=== PATIENT | female | born 2000 | race Caucasian/White ===

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

== ENCOUNTER → 2021-05-12 | Outpatient (CLI) | payer OTHER ==
[~2021-05-12] MED LIST: BUSP5TA; CITA20TA6; CITA20TA7; DEBL1TAB; ESTA0.25; OMEP-218; TRAZ-189; VITA1CAP25; ZOLO100T
== END ==
LOC: M LABSMTC 09:49
PROVIDERS: ATTEND Anesthesiology
DX: Z01.818 Encounter for other preprocedural examination (principal); Z11.52 Encounter for screening for COVID-19

== ENCOUNTER 2021-05-17 09:46 | Day surgery (SDC) | payer OTHER ==
[~2021-05-17] VITALS: Ht 172.7 cm; Wt 112.9 kg
[~2021-05-17 09:46] MED LIST changes: +NS 1,000 ML IV ONE
[2021-05-17] MEDS ORDERED: SERT-141 PO (10:07)
[2021-05-17] MEDS ORDERED: ZOFR4TAB16 PO (10:07)
[2021-05-17] MEDS ORDERED: LIDOCAINE 2% MDV 20ML VIAL As Ordered ONE (10:11)
[2021-05-17] MEDS ORDERED: fentaNYL 100 MCG/2 ML INJECTION (J3010) As Ordered ONE (10:12)
[2021-05-17] MEDS ORDERED: propofoL 500 MG/50 ML VIAL As Ordered ONE (10:12)
[2021-05-17] MEDS ORDERED: propofoL 200 MG/20 ML VIAL As Ordered ONE ×2 (10:52→10:55)
[2021-05-17] MEDS ORDERED: MIDAZOLAM INJ 2MG/2ML VIAL (J2250 PER 1MG) As Ordered ONE (10:53)
[2021-05-17 11:30] VITALS: BP 133/61
--- NOTE | 2021-05-17 11:51 | ROOR ---
Patient Name: Vanessa Barone Procedure Date: 05/17/2021 10:38 AM Date of : 2000 Age: 20 Room: [facility] Gender: Female Note Status: Finalized Procedure: Colonoscopy Indications: Change in bowel habits Providers: Shen Parr MD Referring MD: Julianna Mcguire Np Requesting Provider: Medicines: Monitored Anesthesia Care Complications: No immediate complications. Procedure: Pre-Anesthesia Assessment: - Prior to the procedure, a History and Physical was performed, and patient medications and allergies were reviewed. The patient is competent. The risks and benefits of the procedure and the sedation options and risks were discussed with the patient. All questions were answered and informed consent was obtained. Patient identification and proposed procedure were verified by the physician, the nurse and the anesthesiologist in the procedure room. Mental Status Examination: alert and oriented. Airway Examination: normal oropharyngeal airway and neck mobility. Respiratory Examination: clear to auscultation. CV Examination: normal. Prophylactic Antibiotics: The patient does not require prophylactic antibiotics. Prior Anticoagulants: The patient has taken no previous anticoagulant or antiplatelet agents. ASA Grade Assessment: II - A patient with mild systemic disease. After reviewing the risks and benefits, the patient was deemed in satisfactory condition to undergo the procedure. The anesthesia plan was to use monitored anesthesia care (MAC). Immediately prior to administration of medications, the patient was re-assessed for adequacy to receive sedatives. The heart rate, respiratory rate, oxygen saturations, blood pressure, adequacy of pulmonary ventilation, and response to care were monitored throughout the procedure. The physical status of the patient was re-assessed after the procedure. The Colonoscope was introduced through the anus and advanced to the terminal ileum, with identification of the appendiceal orifice and IC valve. The colonoscopy was performed without difficulty. The patient tolerated the procedure well. The quality of the bowel preparation was poor. The terminal ileum, ileocecal valve, appendiceal orifice, and rectum were photographed. Scope insertion time was 2 minutes. Scope withdrawal time was 9 minutes. Findings: The perianal and digital rectal examinations were normal. The terminal ileum appeared normal. A moderate amount of semi-liquid semi-solid stool was found from rectum to cecum, interfering with visualization. Lavage of the area was performed using a large amount of sterile water, resulting in incomplete clearance with fair visualization. Non-bleeding external and internal hemorrhoids were found during retroflexion. The hemorrhoids were small. There is no endoscopic evidence of inflammation, mass or ulcerations in the entire colon. Impression: - Preparation of the colon was poor. - The examined portion of the ileum was normal. - Stool from rectum to cecum. - Non-bleeding external and internal hemorrhoids. - No specimens collected. Recommendation: - Patient has a contact number available for emergencies. The signs and symptoms of potential delayed complications were discussed with the patient. Return to normal activities tomorrow. Written discharge instructions were provided to the patient. - High fiber diet. - Continue present medications. - Repeat colonoscopy at age 50 for screening purposes. - Telephone GI clinic if symptomatic if persistent symptoms or new symptoms. - Return to primary care physician. Procedure Code(s): --- Professional --- 64689, Colonoscopy, flexible; diagnostic, including collection of specimen(s) by brushing or washing, when performed (separate procedure) Diagnosis Code(s): --- Professional --- K64.8, Other hemorrhoids R19.4, Change in bowel habit CPT copyright 2019 [employer]. All rights reserved. The codes documented in this report are preliminary and upon marketing professional review may be revised to meet current compliance requirements. Shen Parr MD Shen Parr MD 05/17/2021 11:50:59 AM Electronically signed by Shen Parr MD Number of Addenda: 0 Note Initiated On: 05/17/2021 10:38 AM Estimated Blood Loss: Estimated blood loss: none.
--- NOTE | 2021-05-17 11:55 | ROOR ---
Patient Name: Vanessa Barone Procedure Date: 05/17/2021 10:37 AM Date of : 2000 Age: 20 Room: [facility] Gender: Female Note Status: Finalized Procedure: Upper GI endoscopy Indications: Suspected gastro-esophageal reflux disease, Follow-up of ulcer of the GI tract Providers: Shen Parr MD Referring MD: Julianna Mcguire Np Requesting Provider: Medicines: Monitored Anesthesia Care Complications: No immediate complications. Procedure: Pre-Anesthesia Assessment: - Prior to the procedure, a History and Physical was performed, and patient medications and allergies were reviewed. The patient is competent. The risks and benefits of the procedure and the sedation options and risks were discussed with the patient. All questions were answered and informed consent was obtained. Patient identification and proposed procedure were verified by the physician, the nurse and the anesthesiologist in the procedure room. Mental Status Examination: alert and oriented. Airway Examination: normal oropharyngeal airway and neck mobility. Respiratory Examination: clear to auscultation. CV Examination: normal. Prophylactic Antibiotics: The patient does not require prophylactic antibiotics. Prior Anticoagulants: The patient has taken no previous anticoagulant or antiplatelet agents. ASA Grade Assessment: II - A patient with mild systemic disease. After reviewing the risks and benefits, the patient was deemed in satisfactory condition to undergo the procedure. The anesthesia plan was to use monitored anesthesia care (MAC). Immediately prior to administration of medications, the patient was re-assessed for adequacy to receive sedatives. The heart rate, respiratory rate, oxygen saturations, blood pressure, adequacy of pulmonary ventilation, and response to care were monitored throughout the procedure. The physical status of the patient was re-assessed after the procedure. The Endoscope was introduced through the mouth, and advanced to the second part of duodenum. The upper GI endoscopy was accomplished without difficulty. The patient tolerated the procedure well. Findings: The Z-line was regular and was found at the gastroesophageal junction. Scattered moderate inflammation characterized by friability and granularity was found in the gastric body and in the gastric antrum. Biopsies were taken with a cold forceps for Helicobacter pylori testing. Verification of patient identification for the specimen was done by the physician and nurse using the patient's name, date and medical record number. Estimated blood loss was minimal. Scattered moderate inflammation characterized by erythema and granularity was found in the duodenal bulb and in the second portion of the duodenum. Biopsies for histology were taken with a cold forceps for evaluation of celiac disease. Impression: - Z-line regular, at the gastroesophageal junction. - Gastritis. Biopsied. - Duodenitis. Biopsied. Recommendation: - Patient has a contact number available for emergencies. The signs and symptoms of potential delayed complications were discussed with the patient. Return to normal activities tomorrow. Written discharge instructions were provided to the patient. - High fiber diet. - Continue present medications. - Await pathology results. - Follow an antireflux regimen. - Return to GI clinic if persistent symptoms or new symptoms. - Return to primary care physician. Procedure Code(s): --- Professional --- 39836, Esophagogastroduodenoscopy, flexible, transoral; with biopsy, single or multiple Diagnosis Code(s): --- Professional --- K29.70, Gastritis, unspecified, without bleeding K29.80, Duodenitis without bleeding K28.9, Gastrojejunal ulcer, unspecified as acute or chronic, without hemorrhage or perforation CPT copyright 2019 [employer] [employer]. All rights reserved. The codes documented in this report are preliminary and upon asp net programmer review may be revised to meet current compliance requirements. Shen Parr MD Shen Parr MD 05/17/2021 11:54:39 AM Electronically signed by Shen Parr MD Number of Addenda: 0 Note Initiated On: 05/17/2021 10:37 AM Estimated Blood Loss: Estimated blood loss was minimal.
== END 2021-05-17 11:38 | disposition home or self-care (01) ==
LOC: M OPP 09:46
PROVIDERS: ATTEND Internal Medicine Gastroenterology
DX: R19.4 Change in bowel habit (principal); K64.8 Other hemorrhoids; K29.70 Gastritis, unspecified, without bleeding; K29.80 Duodenitis without bleeding; K28.9 Gastrojejunal ulcer, unspecified as acute or chronic, without hemorrhage or perforation; D68.0 Von Willebrand disease; Z86.19 Personal history of other infectious and parasitic diseases; Z79.899 Other long term (current) drug therapy; Z88.0 Allergy status to penicillin
CPT/HCPCS: 43239; 45378; 88305; J2250; J3010

== ENCOUNTER 2021-09-22 13:30 | Emergency (ER) | payer MEDICAID, OTHER ==
[~2021-09-22] VITALS: Ht 172.7 cm; Wt 97.2 kg
[~2021-09-22 13:30] MED LIST changes: -NS 1,000 ML IV ONE; +OMEP-173; -OMEP-218; +SERT-141 PO; +ZOFR4TAB16 PO
[2021-09-22] MEDS ORDERED: OMEP1CAP73 PO (13:55)
[2021-09-22 17:04] LABS: BASO % 0.2 % (0.0-1.0); HEMATOCRIT 43.5 % (36.0-47.0); HEMOGLOBIN 13.8 g/dl (12.0-15.5); LYMPH # 1.2 10^3/uL (1.5-5.0); LYMPH % 8.6 % (24.0-44.0); MEAN CORPUSCULAR HGB CONC 31.7 g/dl (32.0-36.5); MEAN CORPUSCULAR VOLUME 88.2 fl (80.0-96.0); MONO # 0.5 10^3/uL (0.0-0.8); MONO % 3.8 % (2.0-8.0); NEUTROPHILS # 12.2 10^3/uL (1.5-8.5); NEUTROPHILS % 86.9 % (36.0-66.0); PLATELET COUNT, AUTOMATED 294 10^3/uL (150-450); RED BLOOD COUNT 4.93 10^6/uL (4.00-5.40)
[2021-09-22 17:07] LABS: HCG, SERUM QUALITATIVE NEGATIVE (NEGATIVE)
[2021-09-22 17:11] LABS: ALBUMIN 4.4 GM/DL (3.2-5.2); ALT/SGPT 107 U/L (12-78); BILIRUBIN,DIRECT 0.2 MG/DL (0.0-0.2); BLOOD UREA NITROGEN 7 MG/DL (7-18); CALCIUM LEVEL 10.3 MG/DL (8.5-10.1); CARBON DIOXIDE LEVEL 26 MEQ/L (21-32); CHLORIDE LEVEL 103 MEQ/L (98-107); GLUCOSE, FASTING 105 MG/DL (70-100); LIPASE 68 U/L (73-393); POTASSIUM SERUM 3.6 MEQ/L (3.5-5.1); SODIUM LEVEL 138 MEQ/L (136-145); TOTAL PROTEIN 7.8 GM/DL (6.4-8.2)
[2021-09-22] MEDS ORDERED: NS 1,000 ML IV ONE (19:55)
[2021-09-22] MEDS ORDERED: METOCLOPRAMIDE INJ 10MG/2ML VIAL (J2765 PER 1) IV ONE (19:55)
[2021-09-22] MEDS ORDERED: FAMOTIDINE IV BAG 20 MG in IV 1 EA IV ONE (19:55)
[2021-09-22] MEDS ORDERED: KETOROLAC 30 MG/ML 1ML VIAL IV ONE (20:00)
[2021-09-22] MEDS ORDERED: ISOVUE-370 76% 100ML VIAL As Ordered ONE (20:05)
[2021-09-22 20:16] LABS: C REACTIVE PROTEIN QUANTITATIV < 0.30 MG/DL (0.00-0.30)
[2021-09-22 20:26] LABS: ERYTHROCYTE SEDIMENTATION RATE 5 mm/hr (0-20)
[2021-09-22] MEDS ORDERED: GI COCKTAIL 50ML BTL(HYOSCYAMINE/MAALOX/LIDOCAINE VISCOUS)(1:3:1) PO ONE (22:20)
[2021-09-22 22:56] VITALS: BP 150/92
== END 2021-09-22 23:02 | disposition home or self-care (01) ==
LOC: M ED 13:30
DX: K76.0 Fatty (change of) liver, not elsewhere classified (principal); R11.2 Nausea with vomiting, unspecified; F12.10 Cannabis abuse, uncomplicated; Z88.0 Allergy status to penicillin
CPT/HCPCS: 70450; 71045; 74177; 80048; 80076; 81001; 83690; 84703; 85025; 85652; 86140; 93005; 96361; 96365; 96375; 99284; J1885; J2765; Q9967

== ENCOUNTER 2021-09-24 04:30 | Emergency (ER) | payer OTHER ==
[~2021-09-24] VITALS: Ht 172.7 cm; Wt 100.0 kg
[2021-09-24 04:30] VITALS: BP 153/95
[~2021-09-24 04:30] MED LIST changes: +OMEP1CAP73 PO
[2021-09-24] MEDS ORDERED: REGL10TA6 (04:43)
[2021-09-24] MEDS ORDERED: NS 1,000 ML IV ONE (07:20)
[2021-09-24] MEDS ORDERED: METOCLOPRAMIDE INJ 10MG/2ML VIAL (J2765 PER 1) IV ONE (07:20)
[2021-09-24] MEDS ORDERED: PANTOPRAZOLE 40MG VIAL (C9113 PER 1) IV ONE (07:20)
[2021-09-24 08:03] LABS: BASO % 0.3 % (0.0-1.0); EOS % 0.1 % (0.0-3.0); HEMATOCRIT 41.9 % (36.0-47.0); HEMOGLOBIN 13.8 g/dl (12.0-15.5); LYMPH # 2.2 10^3/uL (1.5-5.0); LYMPH % 18.3 % (24.0-44.0); MEAN CORPUSCULAR HEMOGLOBIN 28.1 pg (27.0-33.0); MEAN CORPUSCULAR HGB CONC 32.9 g/dl (32.0-36.5); MEAN CORPUSCULAR VOLUME 85.3 fl (80.0-96.0); MONO # 0.9 10^3/uL (0.0-0.8); MONO % 7.5 % (2.0-8.0); NEUTROPHILS % 73.3 % (36.0-66.0); PLATELET COUNT, AUTOMATED 296 10^3/uL (150-450); RED BLOOD COUNT 4.91 10^6/uL (4.00-5.40); WHITE BLOOD COUNT 12.3 10^3/uL (4.0-10.0)
[2021-09-24 08:30] LABS: HCG, SERUM QUALITATIVE NEGATIVE (NEGATIVE)
[2021-09-24 08:37] LABS: ALBUMIN 4.2 GM/DL (3.2-5.2); ALT/SGPT 117 U/L (12-78); BILIRUBIN,DIRECT 0.2 MG/DL (0.0-0.2); BILIRUBIN,TOTAL 0.9 MG/DL (0.2-1.0); BLOOD UREA NITROGEN 7 MG/DL (7-18); CALCIUM LEVEL 9.5 MG/DL (8.5-10.1); CARBON DIOXIDE LEVEL 26 MEQ/L (21-32); CHLORIDE LEVEL 101 MEQ/L (98-107); CREATININE FOR GFR 0.84 MG/DL (0.55-1.30); GLUCOSE, FASTING 97 MG/DL (70-100); LIPASE 69 U/L (73-393); POTASSIUM SERUM 3.2 MEQ/L (3.5-5.1); SODIUM LEVEL 137 MEQ/L (136-145); TOTAL PROTEIN 7.8 GM/DL (6.4-8.2)
[2021-09-24] MEDS ORDERED: KCL 10MEQ/100ML SWI (KRUN) 10 MEQ in IV 1 EA IV ONE (09:10)
[2021-09-24] MEDS ORDERED: POTASSIUM CHLORIDE 10MEQ SR TABLET PO ONE ×2 (09:10→09:15)
[2021-09-24] MEDS ORDERED: ONDA4TAB6 PO (10:21)
== END 2021-09-24 10:28 | disposition home or self-care (01) ==
LOC: M ED 04:30
DX: R11.2 Nausea with vomiting, unspecified (principal); Z88.0 Allergy status to penicillin
CPT/HCPCS: 80048; 80076; 81001; 83690; 84703; 85025; 96361; 96374; 96375; 99283; C9113; J2765

== ENCOUNTER → 2021-11-29 | Outpatient (CLI) | payer OTHER ==
[~2021-11-29] MED LIST changes: +ONDA4TAB6 PO; +REGL10TA6
== END ==
LOC: M RAD 07:45
PROVIDERS: ATTEND Internal Medicine Gastroenterology
DX: R11.2 Nausea with vomiting, unspecified (principal)
CPT/HCPCS: 78264; A9541

== ENCOUNTER 2023-11-12 18:29 | Inpatient (IN) | payer MEDICAID, OTHER, SELFPAY ==
[~2023-11-12] VITALS: Ht 172.7 cm; Wt 83.3 kg
[2023-11-12] MEDS ORDERED: IBUPROFEN 400MG TAB PO PRN (21:50)
[2023-11-12] MEDS ORDERED: diphenhydrAMINE 25MG CAP PO PRN (21:50)
[2023-11-12] MEDS ORDERED: MOM 30ML SUSPENSION UDC PO PRN (21:50)
[2023-11-12] MEDS ORDERED: ACETAMINOPHEN TAB 650MG DOSE (2X325MG) PO PRN (21:50)
[2023-11-12] MEDS ORDERED: HOME MED LIST COMPLETE! XX SCH (23:15)
[2023-11-12] MEDS: traZODone 50 MG TAB PO PRN (23:44)
[2023-11-13 00:02] VITALS: BP 126/83; TEMP 98.7; O2SAT 99
[2023-11-13 06:09] VITALS: BP 101/56; TEMP 97.2; O2SAT 99
[2023-11-13] MEDS: SERTRALINE HCL 50 MG TAB PO SCH (09:14)
[2023-11-13] MEDS: MAALOX 30 ML SUSP *UDC PO PRN (13:29)
[2023-11-13] MEDS: ONDANSETRON 4MG ORAL DISINTEGRATING TAB PO PRN ×2 (14:56→20:15)
[2023-11-13 18:29] VITALS: BP 140/80; TEMP 97.9
[2023-11-13 19:58] LABS: HEMATOCRIT 41.7 % (36.0-47.0); HEMOGLOBIN 14.2 g/dl (12.0-15.5); MEAN CORPUSCULAR HEMOGLOBIN 30.4 pg (27.0-33.0); MEAN CORPUSCULAR HGB CONC 34.1 g/dl (32.0-36.5); MEAN CORPUSCULAR VOLUME 89.3 fl (80.0-96.0); PLATELET COUNT, AUTOMATED 357 10^3/uL (150-450); RED BLOOD COUNT 4.67 10^6/uL (4.00-5.40); WHITE BLOOD COUNT 12.3 10^3/uL (4.0-10.0)
[2023-11-13 20:33] LABS: ALBUMIN 4.7 G/DL (3.2-5.2); ALKALINE PHOSPHATASE 70 U/L (46-116); ALT/SGPT 14 U/L (7.0-40); AST/SGOT 10 U/L (<34); BILIRUBIN,TOTAL 1.8 MG/DL (0.3-1.2); BLOOD UREA NITROGEN 10 MG/DL (9-23); CARBON DIOXIDE LEVEL 24 MMOL/L (20-31); CHLORIDE LEVEL 104 MMOL/L (98-107); CREATININE FOR GFR 0.65 MG/DL (0.55-1.30); GLOMERULAR FILTRATION RATE > 60.0 (>60); GLUCOSE, FASTING 151 MG/DL (60-100); POTASSIUM SERUM 3.8 MMOL/L (3.5-5.1); SODIUM LEVEL 140 MMOL/L (136-145); TOTAL PROTEIN 7.7 G/DL (5.7-8.2)
[2023-11-13 23:00] VITALS: TEMP 96.7
[2023-11-14 05:55] VITALS: BP 148/98; TEMP 97.4; O2SAT 100
[2023-11-14] MEDS ORDERED: PILL CUTTER 1 EACH XX PRN (08:15)
[2023-11-14] MEDS: SERTRALINE HCL 25 MG TABLET PO SCH (11:37)
[2023-11-14 17:46] VITALS: BP 133/74; TEMP 99; O2SAT 100
[2023-11-14] MEDS: METOCLOPRAMIDE 5 MG TAB PO SCH (17:58)
[2023-11-15 06:28] VITALS: BP 126/60; TEMP 98.6; O2SAT 98
[2023-11-15 06:36] VITALS: BP 147/90; TEMP 98; O2SAT 100
[2023-11-15 11:43] LABS: ALBUMIN 4.9 G/DL (3.2-5.2); ALKALINE PHOSPHATASE 80 U/L (46-116); ALT/SGPT 20 U/L (7.0-40); AST/SGOT 18 U/L (<34); BILIRUBIN,TOTAL 2.1 MG/DL (0.3-1.2); BLOOD UREA NITROGEN 14 MG/DL (9-23); CALCIUM LEVEL 10.7 MG/DL (8.5-10.1); CARBON DIOXIDE LEVEL 34 MMOL/L (20-31); CHLORIDE LEVEL 85 MMOL/L (98-107); CREATININE FOR GFR 0.84 MG/DL (0.55-1.30); GLOMERULAR FILTRATION RATE > 60.0 (>60); GLUCOSE, FASTING 142 MG/DL (60-100); MAGNESIUM LEVEL 2.2 MG/DL (1.8-2.4); POTASSIUM SERUM 2.3 MMOL/L (3.5-5.1); SODIUM LEVEL 130 MMOL/L (136-145); TOTAL PROTEIN 8.2 G/DL (5.7-8.2)
[2023-11-15] MEDS ORDERED: METOCLOPRAMIDE 5 MG TAB PO SCH (16:00)
== END 2023-11-15 13:03 | disposition short-term general hospital (02) | DRG 754 ==
LOC: M ED 18:29 → M ED INP 21:46 → M PSY 23:19
PROVIDERS: ADMIT Student in an Organized Health Care Education/Training Program; ATTEND Student in an Organized Health Care Education/Training Program
DX: F32.A Depression, unspecified (principal); K31.84 Gastroparesis; R45.851 Suicidal ideations; Z81.8 Family history of other mental and behavioral disorders; K58.9 Irritable bowel syndrome, unspecified; E86.0 Dehydration; Z63.8 Other specified problems related to primary support group

== ENCOUNTER 2023-11-15 12:32 | Observation (INO) | payer MEDICAID, OTHER ==
[~2023-11-15] VITALS: Ht 172.7 cm; Wt 83.3 kg
[2023-11-15] MEDS ORDERED: ACETAMINOPHEN TAB 650MG DOSE (2X325MG) PO PRN (12:45)
[2023-11-15 13:10] VITALS: BP 143/89; TEMP 97.3; O2SAT 99
[2023-11-15 14:45] LABS: HEMATOCRIT 43.1 % (36.0-47.0); HEMOGLOBIN 14.9 g/dl (12.0-15.5); MEAN CORPUSCULAR HEMOGLOBIN 29.9 pg (27.0-33.0); MEAN CORPUSCULAR HGB CONC 34.6 g/dl (32.0-36.5); MEAN CORPUSCULAR VOLUME 86.5 fl (80.0-96.0); PLATELET COUNT, AUTOMATED 357 10^3/uL (150-450); RED BLOOD COUNT 4.98 10^6/uL (4.00-5.40); WHITE BLOOD COUNT 16.6 10^3/uL (4.0-10.0)
[2023-11-15 15:01] LABS: INR 1.01
[2023-11-15] MEDS: ONDANSETRON 4MG 2ML VIAL IV PRN (15:24)
[2023-11-15] MEDS: METOCLOPRAMIDE INJ 10MG/2ML VIAL IV SCH (15:24)
[2023-11-15] MEDS: NS 1,000 ML IV SCH (15:24)
[2023-11-15 15:28] VITALS: O2SAT 98
[2023-11-15 16:39] LABS: HCG, SERUM QUANTITATIVE < 2.6 MIU/ML (<4.2)
[2023-11-15 16:48] LABS: ALBUMIN 4.8 G/DL (3.2-5.2); ALKALINE PHOSPHATASE 70 U/L (46-116); ALT/SGPT 21 U/L (7.0-40); AST/SGOT 15 U/L (<34); BILIRUBIN,TOTAL 2.2 MG/DL (0.3-1.2); BLOOD UREA NITROGEN 12 MG/DL (9-23); CALCIUM LEVEL 10.2 MG/DL (8.5-10.1); CARBON DIOXIDE LEVEL 37 MMOL/L (20-31); CHLORIDE LEVEL 88 MMOL/L (98-107); GLOMERULAR FILTRATION RATE > 60.0 (>60); GLUCOSE, FASTING 109 MG/DL (60-100); POTASSIUM SERUM 2.7 MMOL/L (3.5-5.1); SODIUM LEVEL 135 MMOL/L (136-145); TOTAL PROTEIN 7.9 G/DL (5.7-8.2)
[2023-11-15] MEDS: POTASSIUM CHLORIDE 10% LIQ 20MEQ/15ML UDC PO SCH (17:24)
[2023-11-15 19:56] VITALS: BP 136/92; TEMP 97.5; O2SAT 95
[2023-11-15] MEDS: PANTOPRAZOLE 40MG VIAL IV SCH (21:55)
[2023-11-15 22:32] LABS: ALBUMIN 4.6 G/DL (3.2-5.2); ALKALINE PHOSPHATASE 67 U/L (46-116); ALT/SGPT 19 U/L (7.0-40); AST/SGOT 11 U/L (<34); BILIRUBIN,TOTAL 2.5 MG/DL (0.3-1.2); BLOOD UREA NITROGEN 11 MG/DL (9-23); CALCIUM LEVEL 9.7 MG/DL (8.5-10.1); CARBON DIOXIDE LEVEL 36 MMOL/L (20-31); CHLORIDE LEVEL 94 MMOL/L (98-107); CREATININE FOR GFR 0.72 MG/DL (0.55-1.30); GLOMERULAR FILTRATION RATE > 60.0 (>60); GLUCOSE, FASTING 130 MG/DL (60-100); POTASSIUM SERUM 2.8 MMOL/L (3.5-5.1); SODIUM LEVEL 136 MMOL/L (136-145); TOTAL PROTEIN 7.6 G/DL (5.7-8.2)
[2023-11-16] MEDS: KCL 10MEQ/100ML SWI (KRUN) 10 MEQ in IV 1 EA IV ONE (00:28)
[2023-11-16] MEDS: POTASSIUM CHLORIDE 10% LIQ 20MEQ/15ML UDC PO ONE (00:28)
[2023-11-16 04:25] LABS: HEMATOCRIT 41.1 % (36.0-47.0); HEMOGLOBIN 14.1 g/dl (12.0-15.5); MEAN CORPUSCULAR HEMOGLOBIN 30.3 pg (27.0-33.0); MEAN CORPUSCULAR HGB CONC 34.3 g/dl (32.0-36.5); MEAN CORPUSCULAR VOLUME 88.2 fl (80.0-96.0); PLATELET COUNT, AUTOMATED 342 10^3/uL (150-450); RED BLOOD COUNT 4.66 10^6/uL (4.00-5.40); WHITE BLOOD COUNT 12.6 10^3/uL (4.0-10.0)
[2023-11-16 04:59] LABS: ALBUMIN 4.3 G/DL (3.2-5.2); ALKALINE PHOSPHATASE 62 U/L (46-116); ALT/SGPT 18 U/L (7.0-40); AST/SGOT 10 U/L (<34); BILIRUBIN,TOTAL 2.6 MG/DL (0.3-1.2); BLOOD UREA NITROGEN 8 MG/DL (9-23); CALCIUM LEVEL 9.4 MG/DL (8.5-10.1); CARBON DIOXIDE LEVEL 33 MMOL/L (20-31); CHLORIDE LEVEL 96 MMOL/L (98-107); CREATININE FOR GFR 0.74 MG/DL (0.55-1.30); GLOMERULAR FILTRATION RATE > 60.0 (>60); GLUCOSE, FASTING 114 MG/DL (60-100); POTASSIUM SERUM 3.4 MMOL/L (3.5-5.1); SODIUM LEVEL 136 MMOL/L (136-145); TOTAL PROTEIN 7.1 G/DL (5.7-8.2)
[2023-11-16 05:45] VITALS: BP 157/99; TEMP 97.9; O2SAT 96
[2023-11-16] MEDS: POTASSIUM CHLORIDE 10% LIQ 20MEQ/15ML UDC PO SCH (08:51)
[2023-11-16] MEDS: ENOXAPARIN 40MG/0.4ML SYRINGE (J1650 PER 10MG) SC SCH (08:51)
[2023-11-16 13:38] LABS: BLOOD UREA NITROGEN 6 MG/DL (9-23); CALCIUM LEVEL 9.3 MG/DL (8.5-10.1); CARBON DIOXIDE LEVEL 32 MMOL/L (20-31); CHLORIDE LEVEL 101 MMOL/L (98-107); CREATININE FOR GFR 0.69 MG/DL (0.55-1.30); GLOMERULAR FILTRATION RATE > 60.0 (>60); GLUCOSE, FASTING 103 MG/DL (60-100); POTASSIUM SERUM 3.9 MMOL/L (3.5-5.1); SODIUM LEVEL 137 MMOL/L (136-145)
[2023-11-16 14:00] VITALS: BP 160/62; TEMP 97.7; O2SAT 98
[2023-11-16 21:01] VITALS: BP 134/87; TEMP 97.5; O2SAT 96
[2023-11-17 05:46] VITALS: BP 128/84; TEMP 97.5; O2SAT 94
[2023-11-17 07:05] LABS: HEMATOCRIT 39.4 % (36.0-47.0); HEMOGLOBIN 12.9 g/dl (12.0-15.5); MEAN CORPUSCULAR HEMOGLOBIN 29.7 pg (27.0-33.0); MEAN CORPUSCULAR HGB CONC 32.7 g/dl (32.0-36.5); MEAN CORPUSCULAR VOLUME 90.6 fl (80.0-96.0); PLATELET COUNT, AUTOMATED 293 10^3/uL (150-450); RED BLOOD COUNT 4.35 10^6/uL (4.00-5.40); WHITE BLOOD COUNT 9.2 10^3/uL (4.0-10.0)
[2023-11-17 07:36] LABS: ALBUMIN 3.6 G/DL (3.2-5.2); ALKALINE PHOSPHATASE 53 U/L (46-116); ALT/SGPT 16 U/L (7.0-40); AST/SGOT 8 U/L (<34); BLOOD UREA NITROGEN 9 MG/DL (9-23); CALCIUM LEVEL 9.1 MG/DL (8.5-10.1); CARBON DIOXIDE LEVEL 32 MMOL/L (20-31); CHLORIDE LEVEL 102 MMOL/L (98-107); CREATININE FOR GFR 0.74 MG/DL (0.55-1.30); GLOMERULAR FILTRATION RATE > 60.0 (>60); GLUCOSE, FASTING 90 MG/DL (60-100); POTASSIUM SERUM 3.7 MMOL/L (3.5-5.1); SODIUM LEVEL 139 MMOL/L (136-145); TOTAL PROTEIN 6.1 G/DL (5.7-8.2)
[2023-11-17] MEDS ORDERED: REGL5TAB2 PO (07:36)
== END 2023-11-17 11:17 | disposition home or self-care (01) ==
LOC: M MSPAV 14:10
PROVIDERS: ADMIT Internal Medicine; ATTEND Internal Medicine
DX: K31.84 Gastroparesis (principal); E87.6 Hypokalemia; E87.8 Other disorders of electrolyte and fluid balance, not elsewhere classified; E87.1 Hypo-osmolality and hyponatremia; E86.0 Dehydration; K58.9 Irritable bowel syndrome, unspecified; Z97.5 Presence of (intrauterine) contraceptive device; G89.29 Other chronic pain; E83.52 Hypercalcemia; E80.6 Other disorders of bilirubin metabolism; F32.A Depression, unspecified; R45.851 Suicidal ideations; F31.9 Bipolar disorder, unspecified; I45.81 Long QT syndrome; Z87.19 Personal history of other diseases of the digestive system; D68.00 Von Willebrand disease, unspecified; Z63.8 Other specified problems related to primary support group; Z59.00 Homelessness unspecified; Z90.49 Acquired absence of other specified parts of digestive tract; Z80.3 Family history of malignant neoplasm of breast; Z80.49 Family history of malignant neoplasm of other genital organs; F12.91 Cannabis use, unspecified, in remission; Z88.0 Allergy status to penicillin
CPT/HCPCS: 74176; 80048; 80053; 84702; 85027; 85610; 85730; 93005; 96361; 96374; 96375; 96376; C9113; J1650; J2405; J2765